=== PATIENT | female | born 1975 ===

== ENCOUNTER 2017-12-14 22:39 | Inpatient (IN) | payer MEDICAID ==
[~2017-12-14] VITALS: Ht 165.1 cm; Wt 71.1 kg
[~2017-12-14 22:39] MED LIST: CEPH-368 PO; GABA-826 PO; NABU500T PO; OXYC-302 PO; PREN1TAB28 PO; RANI150T4 PO; TRAZ50TA18 PO
[2017-12-15] MEDS ORDERED: SODIUM CHLORIDE 0.9% 1,000ML IVBOLUS ONE ×2 (00:30→01:30)
[2017-12-15] MEDS ORDERED: CLINDAMYCIN PMX 600MG/50ML 50 ML IV ONE (00:30)
[2017-12-15] MEDS ORDERED: CLINDAMYCIN PMX 600MG/50ML 50 ML ONE (00:45)
[2017-12-15 00:53] LABS: BASOPHILS # (AUTO) 0.01 x10^3/uL (0-0.1); BASOPHILS % (AUTO) 0 % (0-1); EOSINOPHILS % (AUTO) 0 % (1-7); LYMPHOCYTES # (AUTO) 0.87 x10^3/uL (1-3.4); LYMPHOCYTES % (AUTO) 5 % (22-44); MD NO; MEAN CORPUSCULAR HEMOGLOBIN 27.1 pg (27.0-34.8); MEAN CORPUSCULAR HGB CONC 32.8 g/dL (32.4-35.8); MEAN CORPUSCULAR VOLUME 82.4 fL (80-100); MEAN PLATELET VOLUME 7.7 fL (7.4-10.4); MONOCYTES # (AUTO) 0.81 x10^3/uL (0.2-0.8); MONOCYTES % (AUTO) 5 % (2-9); NEUTROPHILS # (AUTO) 16.18 x10^3/uL (1.8-6.8); NEUTROPHILS % (AUTO) 91 % (42-75); PLATELET COUNT 173 x10^3/uL (130-400); RED BLOOD COUNT 4.99 x10^6/uL (3.82-5.3); RED CELL DISTRIBUTION WIDTH 16.2 % (9.6-15.2)
[2017-12-15 01:02] LABS: ALANINE AMINOTRANSFERASE 76 U/L (12-78); ALBUMIN 3.8 g/dL (3.4-5.0); ANION GAP 8 mmol/L (5-15); CALCIUM 8.6 mg/dL (8.5-10.1); CHLORIDE 101 mmol/L (98-107)
[2017-12-15 01:04] LABS: ALKALINE PHOSPHATASE 175 U/L (45-117); BILIRUBIN,TOTAL 0.9 mg/dL (0.2-1.0); TOTAL PROTEIN 9.3 g/dL (6.4-8.2)
[2017-12-15] MEDS ORDERED: SODIUM CHLORIDE 0.9% 1,000 ML IV ONE (01:44)
[2017-12-15] MEDS ORDERED: KETOROLAC 30 MG/1 ML IVPush ONE (02:00)
[2017-12-15] MEDS ORDERED: VANCOMYCIN PMX 1GM/200ML 200 ML IV ONE (02:00)
[2017-12-15] MEDS ORDERED: ONDANSETRON 2MG/ML, 2ML IVPush PRN (02:00)
[2017-12-15] MEDS ORDERED: VANCOMYCIN PER PHARMACY MC PRN (02:00)
[2017-12-15 02:24] VITALS: BP 110/64
[2017-12-15] MEDS ORDERED: morphine SULFATE 10 MG/ML, 1ML IVPush PRN (02:30)
[2017-12-15] MEDS ORDERED: hydrALAzine 20 MG/ML, 1ML IVPush PRN (02:30)
[2017-12-15] MEDS ORDERED: PHARMACOKINETIC MONITORING MC PRN (02:30)
[2017-12-15] MEDS ORDERED: LABETALOL 5MG/ML, 20ML IVPush PRN (02:30)
[2017-12-15] MEDS ORDERED: BISACODYL 10 MG SUPP PR PRN (02:30)
[2017-12-15] MEDS ORDERED: POLYETHYLENE GLYCOL 17 GM PACKET PO PRN (02:30)
[2017-12-15 02:36] VITALS: BP 110/64
[2017-12-15 03:05] LABS: HCT (SEDRATE) 34.2 % (34.6-47.8)
[2017-12-15 03:12] LABS: HEMOGLOBIN A1C 4.9 % (4.2-6.3)
[2017-12-15 03:15] LABS: C-REACTIVE PROTEIN, QUANT 2.9 mg/dL (0.02-0.49); THYROID STIMULATING HORMONE 0.434 mIU/L (0.358-3.740)
[2017-12-15] MEDS: HEPARIN 5,000 UNITS/ML, 1ML SQ SCH ×3 (03:31→19:21)
[2017-12-15] MEDS: SODIUM CHLORIDE 0.9% 1,000 ML IV SCH ×2 (03:31→12:12)
[2017-12-15] MEDS: AMPICILLIN/SULBACTAM 3 GM in SODIUM CHLORIDE 0.9% 100 ML IV SCH ×4 (03:31→20:40)
[2017-12-15] MEDS: VANCOMYCIN 1,200 MG in SODIUM CHLORIDE 0.9% 250 ML IV SCH ×2 (04:27→16:15)
[2017-12-15] MEDS: ACETAMINOPHEN 325 MG TABLET PO PRN ×3 (06:33→19:28)
[2017-12-15] MEDS ORDERED: MAGNESIUM SULFATE PMX 2GM/50ML 50 ML IV ONE (08:30)
[2017-12-15 08:32] VITALS: BP 118/73
[2017-12-15] MEDS: SENNA/DOCUSATE TABLET PO SCH (08:38)
[2017-12-15 14:05] VITALS: BP 147/83
[2017-12-15 14:28] LABS: MICROSCOPIC INDICATED
[2017-12-15 14:45] LABS: CULTURE INDICATED? YES
[2017-12-15] MEDS: ONDANSETRON 2MG/ML, 2ML IVPush PRN (19:21)
[2017-12-15 20:05] VITALS: BP 153/96
[2017-12-15] MEDS: TEMAZEPAM 15 MG CAPSULE PO PRN (20:55)
[2017-12-16] MEDS: ACETAMINOPHEN 325 MG TABLET PO PRN ×3 (00:09→08:27)
[2017-12-16] MEDS: ONDANSETRON 2MG/ML, 2ML IVPush PRN ×3 (01:16→15:40)
[2017-12-16] MEDS: AMPICILLIN/SULBACTAM 3 GM in SODIUM CHLORIDE 0.9% 100 ML IV SCH ×4 (02:57→21:20)
[2017-12-16] MEDS: HEPARIN 5,000 UNITS/ML, 1ML SQ SCH ×3 (02:58→19:38)
[2017-12-16 03:35] VITALS: BP 129/89
[2017-12-16] MEDS: VANCOMYCIN 1,200 MG in SODIUM CHLORIDE 0.9% 250 ML IV SCH ×2 (04:10→16:22)
[2017-12-16 06:12] LABS: ALBUMIN 2.7 g/dL (3.4-5.0); ANION GAP 7 mmol/L (5-15); CALCIUM 7.8 mg/dL (8.5-10.1); CHLORIDE 105 mmol/L (98-107)
[2017-12-16 06:13] LABS: MEAN CORPUSCULAR HEMOGLOBIN 27.3 pg (27.0-34.8); MEAN CORPUSCULAR HGB CONC 33.3 g/dL (32.4-35.8); MEAN CORPUSCULAR VOLUME 82.1 fL (80-100); MEAN PLATELET VOLUME 7.7 fL (7.4-10.4); PLATELET COUNT 129 x10^3/uL (130-400); RED BLOOD COUNT 4.25 x10^6/uL (3.82-5.3); RED CELL DISTRIBUTION WIDTH 16.3 % (9.6-15.2)
[2017-12-16 06:15] LABS: ALANINE AMINOTRANSFERASE 50 U/L (12-78); ALKALINE PHOSPHATASE 164 U/L (45-117); CHOL/HDL RATIO 1.8; CHOLESTEROL, TOTAL 98 mg/dL (140-239); HDL CHOL % 54 % (28-40); HDL CHOLESTEROL (DIRECT) 53 mg/dL (40-60); LDL CHOLESTEROL,CALCULATED 30 mg/dL (54-169); LDL/HDL RATIO 0.6 (0.5-3.0); TRIGLYCERIDES 76 mg/dL (50-200); VLDL CHOLESTEROL 15 mg/dL (0-25)
[2017-12-16 06:49] LABS: BASOPHILS % (AUTO) 0 % (0-1); EOSINOPHILS # (AUTO) 0.15 x10^3/uL (0-0.4); EOSINOPHILS % (AUTO) 1 % (1-7); LYMPHOCYTES # (AUTO) 0.87 x10^3/uL (1-3.4); LYMPHOCYTES % (AUTO) 5 % (22-44); MD SCAN; MONOCYTES # (AUTO) 0.84 x10^3/uL (0.2-0.8); MONOCYTES % (AUTO) 5 % (2-9); NEUTROPHILS # (AUTO) 14.66 x10^3/uL (1.8-6.8); NEUTROPHILS % (AUTO) 89 % (42-75)
[2017-12-16 07:25] VITALS: BP 131/88
[2017-12-16] MEDS: SENNA/DOCUSATE TABLET PO SCH (08:27)
[2017-12-16] MEDS ORDERED: MAGNESIUM SULFATE PMX 2GM/50ML 50 ML IV ONE (13:30)
[2017-12-16 13:41] VITALS: BP 149/99
[2017-12-16] MEDS: BUTALB/APAP/CAFFEINE 50MG/325MG/40MG PO PRN ×2 (13:59→19:39)
[2017-12-16] MEDS ORDERED: GADOBUTROL 7.5 MMOL/7.5 ML PFS ONE (19:19)
[2017-12-16 19:48] VITALS: BP 138/96
[2017-12-16] MEDS: TEMAZEPAM 15 MG CAPSULE PO PRN (21:20)
[2017-12-17] MEDS: ACETAMINOPHEN 325 MG TABLET PO PRN ×3 (01:26→13:24)
[2017-12-17 02:47] VITALS: BP 130/82
[2017-12-17] MEDS: AMPICILLIN/SULBACTAM 3 GM in SODIUM CHLORIDE 0.9% 100 ML IV SCH ×2 (03:07→08:36)
[2017-12-17 03:13] VITALS: BP 165/84
[2017-12-17] MEDS: VANCOMYCIN 1,200 MG in SODIUM CHLORIDE 0.9% 250 ML IV SCH ×2 (04:08→16:00)
[2017-12-17] MEDS: HEPARIN 5,000 UNITS/ML, 1ML SQ SCH ×3 (04:08→20:10)
[2017-12-17 05:12] LABS: MEAN CORPUSCULAR HEMOGLOBIN 26.9 pg (27.0-34.8); MEAN CORPUSCULAR HGB CONC 32.4 g/dL (32.4-35.8); MEAN CORPUSCULAR VOLUME 83.1 fL (80-100); PLATELET COUNT 153 x10^3/uL (130-400); RED BLOOD COUNT 3.99 x10^6/uL (3.82-5.3)
[2017-12-17 05:18] LABS: CHLORIDE 106 mmol/L (98-107)
[2017-12-17 05:27] LABS: ANION GAP 8 mmol/L (5-15); CALCIUM 7.8 mg/dL (8.5-10.1); CREATININE 0.62 mg/dL (0.55-1.02)
[2017-12-17 06:16] LABS: BASOPHILS # (AUTO) 0.01 x10^3/uL (0-0.1); BASOPHILS % (AUTO) 0 % (0-1); EOSINOPHILS # (AUTO) 0.24 x10^3/uL (0-0.4); EOSINOPHILS % (AUTO) 2 % (1-7); LYMPHOCYTES # (AUTO) 0.87 x10^3/uL (1-3.4); LYMPHOCYTES % (AUTO) 6 % (22-44); MD SCAN; MONOCYTES # (AUTO) 0.73 x10^3/uL (0.2-0.8); MONOCYTES % (AUTO) 5 % (2-9); NEUTROPHILS # (AUTO) 12.13 x10^3/uL (1.8-6.8); NEUTROPHILS % (AUTO) 87 % (42-75)
[2017-12-17 08:19] VITALS: BP 117/76
[2017-12-17] MEDS: SENNA/DOCUSATE TABLET PO SCH (08:36)
[2017-12-17] MEDS ORDERED: POTASSIUM CHLORIDE 40 MEQ in SODIUM CHLORIDE 0.9% 500 ML IV ONE (09:30)
[2017-12-17 13:08] VITALS: BP 129/95
[2017-12-17] MEDS: KETOROLAC 30 MG/1 ML IVPush PRN (13:55)
[2017-12-17] MEDS ORDERED: POTASSIUM CHLORIDE 20 MEQ TAB.ER.PRT PO ONE (14:00)
[2017-12-17] MEDS: PIPERACILLIN/TAZO 3.375 GM in DEXTROSE 5% 50 ML IV SCH ×2 (14:00→20:12)
[2017-12-17] MEDS ORDERED: PIPERACILLIN/TAZO/PMX 3.375GM 50 ML IV SCH (14:00)
[2017-12-17 18:40] VITALS: BP 138/98
[2017-12-18] MEDS: KETOROLAC 30 MG/1 ML IVPush PRN ×3 (01:40→18:10)
[2017-12-18] MEDS: PIPERACILLIN/TAZO 3.375 GM in DEXTROSE 5% 50 ML IV SCH ×4 (01:42→19:54)
[2017-12-18] MEDS: TEMAZEPAM 15 MG CAPSULE PO PRN ×2 (01:46→22:22)
[2017-12-18 01:50] VITALS: BP 125/85
[2017-12-18] MEDS: HEPARIN 5,000 UNITS/ML, 1ML SQ SCH ×3 (03:56→19:54)
[2017-12-18] MEDS: VANCOMYCIN 1,200 MG in SODIUM CHLORIDE 0.9% 250 ML IV SCH ×2 (03:56→16:12)
[2017-12-18 05:33] LABS: MEAN CORPUSCULAR HEMOGLOBIN 27.3 pg (27.0-34.8); MEAN CORPUSCULAR HGB CONC 32.7 g/dL (32.4-35.8); MEAN CORPUSCULAR VOLUME 83.3 fL (80-100); MEAN PLATELET VOLUME 7.7 fL (7.4-10.4); PLATELET COUNT 200 x10^3/uL (130-400); RED BLOOD COUNT 4.25 x10^6/uL (3.82-5.3); RED CELL DISTRIBUTION WIDTH 16.1 % (9.6-15.2)
[2017-12-18 05:36] LABS: CHLORIDE 108 mmol/L (98-107)
[2017-12-18 05:45] LABS: ANION GAP 8 mmol/L (5-15); CALCIUM 7.9 mg/dL (8.5-10.1); CREATININE 0.63 mg/dL (0.55-1.02)
[2017-12-18 05:48] LABS: BASOPHILS # (AUTO) 0.03 x10^3/uL (0-0.1); BASOPHILS % (AUTO) 0 % (0-1); EOSINOPHILS # (AUTO) 0.35 x10^3/uL (0-0.4); EOSINOPHILS % (AUTO) 3 % (1-7); LYMPHOCYTES # (AUTO) 1.52 x10^3/uL (1-3.4); LYMPHOCYTES % (AUTO) 11 % (22-44); MD SCAN; MONOCYTES # (AUTO) 1.05 x10^3/uL (0.2-0.8); MONOCYTES % (AUTO) 8 % (2-9); NEUTROPHILS % (AUTO) 78 % (42-75)
[2017-12-18] MEDS: NICOTINE 7 MG/24 HR PATCH.TD24 TD SCH (08:35)
[2017-12-18] MEDS: SENNA/DOCUSATE TABLET PO SCH (08:36)
[2017-12-18 09:02] VITALS: BP 142/99
[2017-12-18 15:01] VITALS: BP 118/76
[2017-12-18] MEDS: ACETAMINOPHEN 325 MG TABLET PO PRN (18:09)
[2017-12-18 19:06] VITALS: BP 145/94
[2017-12-19] MEDS: VANCOMYCIN 1,400 MG in SODIUM CHLORIDE 0.9% 250 ML IV SCH ×2 (00:36→12:55)
[2017-12-19] MEDS: PIPERACILLIN/TAZO 3.375 GM in DEXTROSE 5% 50 ML IV SCH ×4 (02:31→20:09)
[2017-12-19 02:33] VITALS: BP 135/92
[2017-12-19] MEDS: HEPARIN 5,000 UNITS/ML, 1ML SQ SCH ×3 (04:27→20:09)
[2017-12-19 05:10] LABS: BASOPHILS # (AUTO) 0.03 x10^3/uL (0-0.1); BASOPHILS % (AUTO) 0 % (0-1); EOSINOPHILS # (AUTO) 0.33 x10^3/uL (0-0.4); EOSINOPHILS % (AUTO) 3 % (1-7); LYMPHOCYTES % (AUTO) 14 % (22-44); MD NO; MEAN CORPUSCULAR HEMOGLOBIN 27.5 pg (27.0-34.8); MEAN CORPUSCULAR HGB CONC 32.9 g/dL (32.4-35.8); MEAN CORPUSCULAR VOLUME 83.7 fL (80-100); MEAN PLATELET VOLUME 7.6 fL (7.4-10.4); MONOCYTES # (AUTO) 0.91 x10^3/uL (0.2-0.8); MONOCYTES % (AUTO) 9 % (2-9); NEUTROPHILS # (AUTO) 7.09 x10^3/uL (1.8-6.8); NEUTROPHILS % (AUTO) 73 % (42-75); PLATELET COUNT 221 x10^3/uL (130-400); RED BLOOD COUNT 4.02 x10^6/uL (3.82-5.3); RED CELL DISTRIBUTION WIDTH 15.7 % (9.6-15.2)
[2017-12-19 05:14] LABS: ANION GAP 5 mmol/L (5-15); CALCIUM 7.9 mg/dL (8.5-10.1); CHLORIDE 109 mmol/L (98-107); CREATININE 0.52 mg/dL (0.55-1.02)
[2017-12-19 07:23] VITALS: BP 146/102
[2017-12-19] MEDS: SENNA/DOCUSATE TABLET PO SCH (07:57)
[2017-12-19] MEDS: NICOTINE 7 MG/24 HR PATCH.TD24 TD SCH (07:57)
[2017-12-19] MEDS: KETOROLAC 30 MG/1 ML IVPush PRN ×3 (08:04→23:08)
[2017-12-19 14:58] VITALS: BP 142/87
[2017-12-19 19:12] VITALS: BP 166/82
[2017-12-19] MEDS: TEMAZEPAM 15 MG CAPSULE PO PRN (23:08)
[2017-12-20] MEDS: VANCOMYCIN 1,400 MG in SODIUM CHLORIDE 0.9% 250 ML IV SCH (01:01)
[2017-12-20 02:43] VITALS: BP 144/83
[2017-12-20] MEDS: PIPERACILLIN/TAZO 3.375 GM in DEXTROSE 5% 50 ML IV SCH ×2 (03:32→07:39)
[2017-12-20] MEDS: HEPARIN 5,000 UNITS/ML, 1ML SQ SCH (04:30)
[2017-12-20] MEDS ORDERED: FLU VACC QS2017-18 (36MOS+) UP/PF 0.5 ML IM-VACC ONE (07:00)
[2017-12-20] MEDS: KETOROLAC 30 MG/1 ML IVPush PRN (07:39)
[2017-12-20] MEDS: SENNA/DOCUSATE TABLET PO SCH (07:44)
[2017-12-20] MEDS: NICOTINE 7 MG/24 HR PATCH.TD24 TD SCH (07:45)
[2017-12-20 08:20] VITALS: BP 126/93
[2017-12-20] MEDS ORDERED: SULF1TAB24 PO (09:59)
== END 2017-12-20 12:00 | disposition home or self-care (01) | DRG 603 ==
LOC: ED 23:59 → EDIP 12-15 02:13 → 4NOR 12-15 02:25 → DCLOUNGE 12-20 11:49
PROVIDERS: ADMIT Internal Medicine; ATTEND Family Medicine
DX: L03.114 Cellulitis of left upper limb (principal); F15.10 Other stimulant abuse, uncomplicated; F19.10 Other psychoactive substance abuse, uncomplicated; G89.29 Other chronic pain; M54.9 Dorsalgia, unspecified
CPT/HCPCS: 36415; 80048; 80053; 80061; 80202; 81001; 83036; 83605; 83735; 84145; 84439; 84443; 85025; 85651; 86140; 87040; 87086; 90686; 96365; A9585; J0295; J1644; J1885; J2405; J3370; J3480; J3475; J7030; J7040; J7050

== ENCOUNTER 2018-11-13 19:03 | Emergency (ER) | payer MEDICAID ==
[~2018-11-13] VITALS: Ht 165.1 cm; Wt 73.5 kg
[~2018-11-13 19:03] MED LIST changes: +SULF1TAB24 PO; -TRAZ50TA18 PO; +TRAZ50TA66 PO
[2018-11-13 19:16] VITALS: BP 143/91
[2018-11-13 19:39] LABS: BASOPHILS # (AUTO) 0.13 x10^3/uL (0-0.1); BASOPHILS % (AUTO) 3 % (0-1); EOSINOPHILS # (AUTO) 0.16 x10^3/uL (0-0.4); EOSINOPHILS % (AUTO) 3 % (1-7); LYMPHOCYTES # (AUTO) 1.95 x10^3/uL (1-3.4); LYMPHOCYTES % (AUTO) 38 % (22-44); MD NO; MEAN CORPUSCULAR HEMOGLOBIN 28.7 pg (27.0-34.8); MEAN CORPUSCULAR HGB CONC 33.5 g/dL (32.4-35.8); MEAN CORPUSCULAR VOLUME 85.7 fL (80-100); MEAN PLATELET VOLUME 7.2 fL (7.4-10.4); MONOCYTES % (AUTO) 4 % (2-9); NEUTROPHILS % (AUTO) 53 % (42-75); PLATELET COUNT 196 x10^3/uL (130-400); RED BLOOD COUNT 4.46 x10^6/uL (3.82-5.3); RED CELL DISTRIBUTION WIDTH 14.4 % (9.6-15.2)
[2018-11-13 19:46] LABS: ALBUMIN 3.8 g/dL (3.4-5.0); ANION GAP 9 mmol/L (5-15); CALCIUM 8.3 mg/dL (8.5-10.1); CHLORIDE 103 mmol/L (98-107)
[2018-11-13 19:47] LABS: SALICYLATE LEVEL < 1.7 mg/dL (2.8-20.0)
[2018-11-13 19:52] LABS: ALANINE AMINOTRANSFERASE 110 U/L (12-78); ALKALINE PHOSPHATASE 188 U/L (45-117); BILIRUBIN,TOTAL 0.8 mg/dL (0.2-1.0); CREATININE 0.81 mg/dL (0.55-1.02); TOTAL PROTEIN 9.1 g/dL (6.4-8.2)
[2018-11-13 19:53] LABS: ACETAMINOPHEN < 2 mcg/mL (10-30)
--- NOTE | 2018-11-13 20:52 | NUR ---
ASSUMED CARE OF PT. PT UP TO RESTROOM TO OBTAIN URINE SAMPLE. REPORT TO MARGY BROWN.
[2018-11-13 21:17] LABS: MICROSCOPIC NOT IND
[2018-11-13 21:28] LABS: CULTURE INDICATED? NO
== END 2018-11-13 21:45 | disposition home or self-care (01) ==
LOC: ED 20:33
DX: S33.5XXA Sprain of ligaments of lumbar spine, initial encounter (principal); F10.220 Alcohol dependence with intoxication, uncomplicated; N95.1 Menopausal and female climacteric states; F32.9 Major depressive disorder, single episode, unspecified; Z72.9 Problem related to lifestyle, unspecified; Z86.19 Personal history of other infectious and parasitic diseases; X58.XXXA Exposure to other specified factors, initial encounter; Y93.89 Activity, other specified; Y92.89 Other specified places as the place of occurrence of the external cause; Y99.8 Other external cause status; Y90.9 Presence of alcohol in blood, level not specified
CPT/HCPCS: 36415; 74021; 80053; 80307; 80329; 81003; 84703; 85025; 99284; G0480

== ENCOUNTER 2018-11-22 05:56 | Emergency (ER) | payer MEDICAID ==
[~2018-11-22] VITALS: Ht 165.1 cm; Wt 75.0 kg
--- NOTE | 2018-11-22 06:07 | NUR ---
IB [facility], PT STANDING OUTSIDE OF THE NUGGET, STATED DIFFICULTY BREATHING, ON ARRIVIAL EMT STATED PT WAS BREATHING RAPIDLY AND ON COACHING PT ON BREATHING PT BREATHING CALMED DOWN, PER EMS PT TOOK METH YESTERDAY AND DRANK 3 EARTHQUAKES ALOIGHT, FSBS-108, 99% R/A, HR 120. MONIITORS APPLIED, SIDERAILS UP X2, CALL LIGHT WITHIN REACH.
[2018-11-22] MEDS ORDERED: LORazepam 1MG TABLET ONE (06:16)
[2018-11-22] MEDS ORDERED: LORazepam 2 MG/ML, 1ML ONE (06:18)
--- NOTE | 2018-11-22 06:24 | NUR ---
PT MEDICATED PER NOV. LAB AT PT'S BEDSIDE FOR LAB DRAW
[2018-11-22] MEDS ORDERED: LORazepam 2 MG/ML, 1ML IVPush ONE (06:30)
[2018-11-22 06:35] LABS: BASOPHILS # (AUTO) 0.05 x10^3/uL (0-0.1); BASOPHILS % (AUTO) 2 % (0-1); EOSINOPHILS # (AUTO) 0.07 x10^3/uL (0-0.4); EOSINOPHILS % (AUTO) 2 % (1-7); LYMPHOCYTES % (AUTO) 53 % (22-44); MD NO; MEAN CORPUSCULAR HEMOGLOBIN 28.3 pg (27.0-34.8); MEAN CORPUSCULAR HGB CONC 33.2 g/dL (32.4-35.8); MEAN CORPUSCULAR VOLUME 85.3 fL (80-100); MEAN PLATELET VOLUME 7.4 fL (7.4-10.4); MONOCYTES # (AUTO) 0.25 x10^3/uL (0.2-0.8); MONOCYTES % (AUTO) 8 % (2-9); NEUTROPHILS # (AUTO) 1.08 x10^3/uL (1.8-6.8); NEUTROPHILS % (AUTO) 35 % (42-75); PLATELET COUNT 139 x10^3/uL (130-400); RED BLOOD COUNT 4.28 x10^6/uL (3.82-5.3); RED CELL DISTRIBUTION WIDTH 14.7 % (9.6-15.2)
--- NOTE | 2018-11-22 06:44 | NUR ---
PT RESTING CALMLY, DENIES NEEDS, MONITORS IN PLACE, CALL LIGHT WITHIN REACH. AWAITING LAB RESULTS
[2018-11-22 06:45] LABS: ALANINE AMINOTRANSFERASE 113 U/L (12-78); ALBUMIN 3.9 g/dL (3.4-5.0); ANION GAP 11 mmol/L (5-15); CHLORIDE 109 mmol/L (98-107); CREATININE 0.69 mg/dL (0.55-1.02)
[2018-11-22 06:47] LABS: ALKALINE PHOSPHATASE 225 U/L (45-117); BILIRUBIN,TOTAL 0.5 mg/dL (0.2-1.0); TOTAL PROTEIN 8.7 g/dL (6.4-8.2)
--- NOTE | 2018-11-22 06:54 | NUR ---
REPORT GIVEN TO MARGY ALVAREZ
--- NOTE | 2018-11-22 07:01 | NUR ---
REPORT FROM HUNTER JI.
[2018-11-22 07:46] VITALS: BP 124/88
--- NOTE | 2018-11-22 07:47 | NUR ---
PT IS RESTING IN BED, RESPIRATIONS EQUAL AND NON LABORED. NAD. PT IS CONNECTED TO THE MONITOR. CALL LIGHT WITHIN REACH.
--- NOTE | 2018-11-22 08:21 | NUR ---
Patient given discharge instructions and they have confirmed that they understand the instructions. Patient ambulatory with steady gait.
== END 2018-11-22 08:23 | disposition home or self-care (01) ==
LOC: ED 06:56
DX: K70.10 Alcoholic hepatitis without ascites (principal); F41.1 Generalized anxiety disorder; F15.920 Other stimulant use, unspecified with intoxication, uncomplicated; F17.210 Nicotine dependence, cigarettes, uncomplicated
CPT/HCPCS: 36415; 80053; 80307; 85025; 99283; J2060